=== PATIENT | male | born 1950 | race Caucasian/White ===

== ENCOUNTER → 2017-12-07 | Outpatient (CLI) | payer BC ==
[~2017-12-07] MED LIST: AMLODIPINE PO; HYDR-5688 PO; LISI-725 PO; OPTIRAY 320 IV PRN
--- NOTE | 2017-12-07 17:05 | DIAGNOSTIC IMAGING REPORT ---
CERVICAL SPINE WITH HISTORY: 67 years-old Male SPINAL STENOSIS chronic neck pain with history of prior spinal fusion. Upper extremity numbness, right greater than left. History of prostate cancer. COMPARISON: Cervical spine radiographs 11/30/2017, bone scan 03/21/2013. TECHNIQUE: Multiple axial CT images of the cervical spine were obtained following the intravenous administration of 93 mL Optiray 320 IV contrast. A dose lowering technique was used consistent with the principals of ALARA. FINDINGS: Anterior fusion with discectomy changes at C5-C6 and C6-C7. There is complete bony fusion of the vertebral bodies at these levels. No evidence of hardware fracture or loosening. Corticated bone fragment posterior to the T1 spinous process suggests remote fracture. Bones are mildly demineralized. There is no acute fracture or subluxation. Moderate marginal spurring about the T1-T2 articulation. Posterior disc osteophyte complex formations are seen at several levels, notably at the C3-C4 and C4-C5 levels. No high-grade central canal narrowing identified. There is neuroforaminal stenosis at several levels, better assessed by MRI. At C3-C4 there is at least moderate bilateral foraminal narrowing. At C4-C5 mild bilateral foraminal stenosis is noted. No abnormal enhancement identified. No prevertebral soft tissue swelling or pleural collections. Emphysematous changes about the lung apices. Multinodular goiter with calcifications about the right and left thyroid lobes. 1.2 cm nodule the posterior right thyroid. Moderate atherosclerosis of the bilateral carotid bulbs. IMPRESSION: 1. Anterior fusion and discectomy changes at C5-C6 and C6-C7. No evidence of hardware complication. 2. No acute fracture or subluxation. 3. Multilevel spondylitic spurring with posterior disc osteophyte complex formations as above. 4. Emphysema. The above report was generated using voice recognition software. It may contain grammatical, syntax or spelling errors. Electronically signed by: Carlitos Gandhi M.D. 12/07/2017 5:03 PM Dictated Date/Time: 12/07/2017 4:52 PM
== END | disposition home or self-care (01) ==
LOC: C.CTS 15:32
PROVIDERS: ATTEND Orthopaedic Surgery Orthopaedic Surgery of the Spine
DX: M48.02 Spinal stenosis, cervical region (principal)

== ENCOUNTER 2019-06-26 05:53 | Inpatient (IN) ==
--- NOTE | 2019-06-06 12:23 | PAT Medication Instructions ---
Medication Instructions Date of Service June 06, 2019 Home Medications amlodipine 10 mg tablet 10 mg PO QAM lisinopril 20 mg tablet 20 mg PO QAM DO NOT take the morning of surgery lisinopril 20 mg tablet 20 mg PO QAM Take morning of surgery With a small sip of water, OTHERWISE NOTHING TO EAT OR DRINK AFTER MIDNIGHT: amlodipine 10 mg tablet 10 mg PO QAM Other Notes If you have any questions please call us at [phone] or [phone] or [phone] or [phone]
--- NOTE | 2019-06-07 11:51 | Anesthesiology Consultation ---
Date of Service June 07, 2019 Assessment & Plan (1) Encounter for pre-operative examination: Chart Review Chart Review: Acceptable Risk for Surgery and Patient seen in Pre Admission Testing Teaching & Discussion Pre-Anesthesia Teaching/Discussion Notes: Instructed NPO after midnight before surgery,except medications with 15 cc of water. Medication instructions provided according to the PAT guidelines. History Surgery Operation Date: 06/26/19 09:50 Proposed Procedures p C3-C4, C4-C5 Anterior Cervical Discectomy and Fusion with Iliac Crest Bone Graft - Price Garcia DO Height/Weight Height: 6 ft Weight: 95.2 kg Allergies Allergy/AdvReac Type Severity Reaction Status Date / Time Sulfa (Sulfonamide Allergy Intermediate HIVES Verified 06/05/19 15:20 Antibiotics) Medications Home Medications Medication Instructions Recorded Confirmed Last Taken amlodipine 10 mg tablet 10 mg PO QAM 04/05/18 06/05/19 06/05/19 lisinopril 20 mg tablet 20 mg PO QAM 04/05/18 06/05/19 06/05/19 Past Medical History Medical History Cervical radiculitis (Chronic) Hypertension (Chronic) Lumbar stenosis (Chronic) Prostate cancer (Chronic) s/p radioactive seeds Exercise / Class Metabolic Activity II 4-5 Yardwork/Stairs/Walk up hill (one flight of stairs (no chest pain/no sob )) Past Surgical History Surgical History Cervical vertebral fusion (Resolved) C5-6 and C6-7 discectomies with C6 corpectomy and C5-7 PEEK cage placement Fusion of lumbar spine (Resolved) L3-L5 decompression/fusion: 07/06/16: Grade 1 view, MAC#4, ETT 8.0 History of colonoscopy History of hemorrhoidectomy Past Anesthesia History No Hx of Anesthesia Complications and No Family Hx of Anesthesia Complications History of PONV No Hx of PONV and No Hx of Motion Sickness STOP BANG Total 4 Social History Smoking Status: Current every day smoker tobacco type: pipe Smoking cigarettes per day: 4-6 X PER DAY Do You Dip or Chew Tobacco: No Hx Alcohol Use: Yes Alcohol type: beer alcohol intake frequency: holidays/special occasions only Hx Substance Use: No substance use type: does not use Review of Systems Patient denies chest pain, shortness of breath, dyspnea on exertion, reflux, cough, wheezing, palpitations. Physical Exam Vital Signs VITALS BP 169/98 (158/92 on manual recheck left) P 66 TEMP 97.8 SP02 99%RA RESP 16 PHYSICAL Midly decreased cervical extension Full TMJ range of motion. TMD 3 finger breaths Mallampati Score 2 Dentition: upper partial Lungs: clear throughout to auscultation Cardiac: regular rate and rhythm, no murmurs noted Spine: normal Carotid arteries: negative bruit Extremities: no edema Testing Laboratory Results 06/07/19 12:11 06/07/19 12:11 PT 10.6 Seconds (9.0-12.0) 06/07/19 12:11 INR 1.0 (0.9-1.1) 06/07/19 12:11 APTT 29.2 Seconds (21.0-31.0) 06/07/19 12:11 Blood Type O Positive 06/07/19 12:11 Antibody Screen NEGATIVE 06/07/19 12:11 Electrocardiogram Date: 06/07/19 NSR at 60bpm. [email or web address] TWA. Chest X-Ray Date: 06/07/19 Calcified plaque of the thoracic aortic arch. Cardiac mediastinal and hilar silhouettes are within normal limits and unchanged. Mild subsegmental atelectasis/scarring. Mild hyperinflation. No pneumothorax, pleural effusion or overt pulmonary edema. No focal airspace consolidation typical for pneumonia. Increased lucency of the lungs may reflect emphysema. Degenerative changes of the shoulders and spine. Healed remote fracture of the posterior right eighth rib. Fusion hardware of the cervical and lumbar spine partially imaged. No acute process.
[2019-06-07 12:33] LABS: Basophils # (auto) 0.01 K/uL (0-0.2); Basophils % (auto) 0.2 %; Eosinophils # (auto) 0.31 K/uL (0-0.5); Eosinophils % (auto) 5.2 %; Hematocrit (blood only) 46.3 % (42-52); Hemoglobin 15.7 g/dL (14.0-18.0); Immature Granulocytes # (auto) 0.01 K/uL (0.00-0.02); Immature Granulocytes % (auto) 0.2 %; Lymphocytes # (auto) 1.39 K/uL (1.2-3.4); Lymphocytes % (auto) 23.5 %; Mean Corpuscular Hemoglobin 30.2 pg (25-34); Mean Corpuscular Hgb Conc 33.9 g/dL (32-36); Mean Platelet Volume 10.5 fL (7.4-10.4); Monocytes # (auto) 0.42 K/uL (0.11-0.59); Monocytes % (auto) 7.1 %; Neutrophils # (auto) 3.77 K/uL (1.4-6.5); Neutrophils % (auto) 63.8 %; Platelet Count 183 K/uL (130-400); RDW Coefficient of Variation 13.3 % (11.5-14.5); RDW Standard Deviation 43.5 fL (36.4-46.3); White Blood Count 5.91 K/uL (4.8-10.8)
--- NOTE | 2019-06-07 12:41 | XRay Report ---
XR chest Pre-admission PA/Lat HISTORY: 68 years-old Male pat preoperative exam. No acute chest complaints COMPARISON: Chest radiographs 06/24/2016 TECHNIQUE: PA and lateral views of the chest FINDINGS: Calcified plaque of the thoracic aortic arch. Cardiac mediastinal and hilar silhouettes are within no rmal limits and unchanged. Mild subsegmental atelectasis/scarring of the inferior segment Sol. Mild hyperinflation. No pneumothorax, pleural effusion or overt pulmonary edema. No focal airspace consol idation typical for pneumonia. Increased lucency of the lungs may reflect emphysema. Degenerative marty nges of the shoulders and spine. Healed remote fracture of the posterior right eighth rib. Fusion len dware of the cervical and lumbar spine partially imaged. IMPRESSION: No acute process. The above report was generated using voice recognition software. It may contain grammatical, syntax o r spelling errors. Electronically signed by: Carlitos Gandhi M.D. 06/07/2019 12:39 PM
[2019-06-07 12:43] LABS: Partial Thromboplastin Ratio 1.1; Partial Thromboplastin Time 29.2 Seconds (21.0-31.0); Prothrombin Time 10.6 Seconds (9.0-12.0)
[2019-06-07 15:38] LABS: Calcium 9.7 mg/dl (8.5-10.1); Creatinine Clr Calc Pharmacy 78.4 ml/min; Est GFR (Non-African American) 71.6; Potassium 4.4 mmol/L (3.5-5.1)
--- NOTE | 2019-06-23 13:33 | History and Physical Report ---
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 His surgery is being planned for Wednesday an ACDF of the cervical spine with iliac crest bone graft C3-C5. PAST MEDICAL HISTORY: Positive for hypertension, lumbar stenosis, lumbar surgery, prostate CA. SOCIAL HISTORY: Nonsmoker, non-ETOH user. and lives with his . Retired. MEDICATIONS: Lisinopril, anti-inflammatories. ALLERGIES: SULFA. REVIEW OF SYSTEMS: Denies any fevers, sweats, chills. Ear, nose and throat negative. Denies shortness of breath, chest pain. Denies nausea, vomiting, bowel and bladder issues. He has upper extremity difficulties as described. PHYSICAL EXAMINATION: VITAL SIGNS: Blood pressure 130/80, temperature 36.8, respirations 18. HEENT: Pupils react to light and accommodation. Ear, nose and throat clear. CARDIAC: Normal S1, S2, no S3. LUNGS: Clear to auscultation. No rales, rhonchi or wheezing. ABDOMEN: Soft, nontender. MUSCULOSKELETAL: He has loss of biceps function, loss of supination function. He has a Spurling maneuver and Lhermitte sign. PLAN: Includes an ACDF with iliac crest bone graft C3-C5 cervical spine.
[2019-06-26] MEDS ORDERED: SODIUM CHLORIDE 0.9% 1,000 ML IV SCH (06:00)
[2019-06-26] MEDS ORDERED: LR 15ML/HR IV SCH (06:00)
[2019-06-26] MEDS ORDERED: CEFAZOLIN 2000MG 2,000 MG/15 ML SYR IV SCH (06:00)
[2019-06-26] MEDS ORDERED: GELATIN SPONGE SZ 100 ONE (06:58)
[2019-06-26] MEDS ORDERED: THROMBIN FOR SOLN 20000 UNIT KIT ONE (06:59)
[2019-06-26] MEDS ORDERED: BACITRACIN INJ 50,000 UNIT VIAL ONE (06:59)
[2019-06-26] MEDS ORDERED: BUPIVACAINE 0.5 % 5 MG/1 ML MPF 30ML VIAL ONE (06:59)
[2019-06-26] MEDS ORDERED: ROCURONIUM BROMIDE 10 MG/ML 5 ML VIAL ONE (07:18)
[2019-06-26] MEDS ORDERED: ONDANSETRON INJ 2 MG/ML 2 ML VIAL ONE (07:18)
[2019-06-26] MEDS ORDERED: MIDAZOLAM HCL 1 MG/ML 2ML VIAL ONE (07:18)
[2019-06-26] MEDS ORDERED: DEXAMETHASONE SOD INJ 4 MG/ML VIAL ONE (07:18)
[2019-06-26] MEDS ORDERED: fentaNYL citrate 100 MCG/2 ML VIAL ONE (07:18)
[2019-06-26] MEDS ORDERED: GLYCOPYRROLATE 0.2 MG/ML VIAL ONE (07:18)
[2019-06-26] MEDS ORDERED: ePHEDrine sulfate 50 MG/ML SYR ONE (07:18)
[2019-06-26] MEDS ORDERED: NEOSTIGMINE METHYLSULFATE 5 MG/5 ML SYR ONE (07:18)
[2019-06-26] MEDS ORDERED: LIDOCAINE HCL 2% 2 ML VIAL/AMP(20MG/ML) INFIL ONE (07:18)
[2019-06-26] MEDS ORDERED: PROPOFOL IV EMULSION 10 MG/ML 20 ML VIAL IV ONE (07:18)
[2019-06-26] MEDS ORDERED: LARYING-O-JET KIT (LTA) ONE (07:18)
--- NOTE | 2019-06-26 07:21 | History & Physical Bridge Note ---
Date of Service June 26, 2019 History & Physical Bridge Note I have examined the patient, reviewed the History & Physical and in the interval since the performance of the History & Physical I have noted the following changes of clinical significance: no changes noted
[2019-06-26] MEDS ORDERED: ONDANSETRON INJ 2 MG/ML 2 ML VIAL IV PRN ×2 (07:22→10:53)
[2019-06-26] MEDS ORDERED: fentaNYL citrate 100 MCG/2 ML VIAL IV PRN (07:22)
[2019-06-26] MEDS ORDERED: ePHEDrine sulfate 50 MG/ML AMP IV PRN (07:22)
[2019-06-26] MEDS ORDERED: ATROPINE SULFATE 0.1 MG/ML 10ML SYR IV PRN (07:22)
[2019-06-26] MEDS ORDERED: HYDROmorphone INJ 2 MG/ML SYR/VIAL ONE (08:20)
[2019-06-26] MEDS: EPINEPHrine INJ 1 MG/ML AMP ONE ×2 (09:14→09:18)
--- NOTE | 2019-06-26 09:20 | Fluoroscopy Report ---
FL spine 1V any level HISTORY: Cervical fusion. FLUOROSCOPY TIME: 5 seconds. FINDINGS: Intraoperative fluoroscopy was provided for the cervical spine. fluoroscopic spot images we re obtained. IMPRESSION: Fluoroscopy provided for a anterior cervical fusion. The above report was generated using voice recognition software. It may contain grammatical, syntax or spelling errors. Electronically signed by: Khurram Leggett M.D. 06/26/2019 9:18 AM
--- NOTE | 2019-06-26 09:35 | Post Operative Brief Note ---
PG Immediate Post Op with CF Date of Surgery June 26, 2019 Pre & Post Diagnosis Operation Date: 06/26/19 07:30 Pre-Op Diagnosis: Cervical Stenosis Post-Op Diagnosis: Cervical Stenosis I identified the patient and participated in the time-out.: Yes Procedure Operation Date: 06/26/19 07:30 Actual Procedures p C3-C4, C4-C5 Anterior Cervical Discectomy and Fusion with Iliac Crest Bone Graft(Not Applicable) - Price Garcia DO Surgeon Price Garcia DO Outbound Sales Consultant Jose minor Estimated Blood Loss 10 Findings Consistent with Post-Op Diagnosis Specimens Specimen Description: none per surgeon Drains [place] Drain (1/4 inch - placed by surgeon) Disposition Accompanied Patient To Recovery: Yes Overlapping Procedure I was immediately available: during the entire case.
--- NOTE | 2019-06-26 09:40 | Operative Report ---
PG Post Operative Report Pre & Post Diagnosis Operation Date: 06/26/19 07:30 Pre-Op Diagnosis: Cervical Stenosis Post-Op Diagnosis: Cervical Stenosis I identified the patient and participated in the time-out.: Yes Procedure Operation Date: 06/26/19 07:30 Actual Procedures p C3-C4, C4-C5 Anterior Cervical Discectomy and Fusion with Iliac Crest Bone Gra ft(Not Applicable) - Price Garcia DO Surgeon Price Garcia DO Preschool Substitute Teacher Jose minor Estimated Blood Loss 10 Findings Consistent with Post-Op Diagnosis Spinal cord compression Fluids Per anesthesia Specimens No specimens Description of Procedure Patient was taken to the operating room a general intubated anesthetic provided the patient. Placed in Supine on the David table. His iliac crest and cervical spine scrubbed first with Betadine prep and sterile drapes sterile. Formal timeout provided. We made a transverse skin incision over the C or vertebral body dissecting the soft tissue. It was a classic approach to his anterior aspect of the cervical spine area there were no issues with bleeders or nerve issues. We went to the anterior aspect the spine did a formal discectomy at C3-4 and C4- 5. Both areas we are back through the posterior longitudinal ligament the spinal cord was decompressed. Foraminotomies provided. Endplates curetted free of cartilage. We went to the iliac crest made a skin incision fashion incision harvested a structural autograft for the skin to be sites at C3-4 and C4-5. This was irrigated closed in layers and sterile dressings applied. We then went to the anterior aspect of the spine used the Fanplayr coalition device. These were placed into the discectomy sites. The fit was anatomic these were both enhanced with structural autograft from the iliac crest. Both the spacers were secured with screws. This area was also then irrigated closed in layers sterile dressings applied collar applied. Patient extubated to PACU stable without complication. Sponge and needle count correct at the close of the procedure. Estimated blood loss 10 cc no complications Sponge and needle count correct at the close Implants used were by the Fanplayr Bone graft used with structural autograft Thank you I attest to the content of the Intraoperative Record and any orders documented therein. Any exceptions are noted below.
--- NOTE | 2019-06-26 10:34 | Anesthesiology Progress Note ---
Date of Service June 26, 2019 Anesthesia Post Procedure Vital Signs Vital Signs: Temp Pulse Pulse Resp BP Pulse Ox 06/26/19 10:30 36.2 C L 63 15 152/85 H 95 06/26/19 10:20 36.2 C L 66 13 144/81 H 95 06/26/19 10:10 61 17 148/81 H 94 06/26/19 10:00 66 14 152/82 H 95 06/26/19 09:50 65 14 143/86 H 98 06/26/19 09:40 65 16 159/87 H 98 06/26/19 09:31 36.3 C L 66 14 140/67 98 06/26/19 06:23 36.4 C L 63 18 137/90 97 Transfer of Care Handoff Completed per policy Notes Mental Status: alert / awake / arousable Patient Amnestic to Procedure: Yes Nausea / Vomiting: adequately controlled Pain: adequately controlled Airway Patency, RR, SpO2: stable & adequate BP & HR: stable & adequate Hydration State: stable & adequate Anesthetic Complications: no major complications apparent
[2019-06-26] MEDS ORDERED: RACEPINEPHRINE 2.25% NEBU SOLN 0.5 ML VIAL INH PRN (10:53)
[2019-06-26] MEDS ORDERED: HYDROmorphone INJ 0.5 MG/0.5 ML SYR IV PRN (10:53)
[2019-06-26] MEDS ORDERED: ONDANSETRON 4 MG OD TAB PO PRN (10:53)
[2019-06-26] MEDS ORDERED: OXYCODONE HCL IR 5 MG TAB (IMMEDIATE RELEASE) PO PRN (10:53)
[2019-06-26] MEDS ORDERED: LORazepam 0.5 MG/1 ML VIAL IV PRN (10:53)
[2019-06-26] MEDS ORDERED: PROMETHAZINE HCL 12.5 MG in SODIUM CHLORIDE 0.9% 50 ML IV PRN (10:53)
[2019-06-26] MEDS ORDERED: DEXAMETHASONE SOD PHOSPHATE 8 MG in SYRINGE 0 ML IV PRN (10:53)
[2019-06-26] MEDS ORDERED: DO NOT ADMINISTER PNEUMOCOCCAL VACCINE PRN (10:53)
[2019-06-26] MEDS ORDERED: MAGNESIUM HYDROXIDE SUSP 30 ML UDC PO PRN (10:53)
[2019-06-26] MEDS ORDERED: ACETAMINOPHEN 1,000 MG/100 ML VIAL IV PRN (10:53)
[2019-06-26] MEDS ORDERED: NALOXONE HCL 0.4 MG/1 ML VIAL/CARP IV PRN (10:53)
[2019-06-26] MEDS ORDERED: FAMOTIDINE 20 MG TAB PO PRN (10:53)
[2019-06-26] MEDS ORDERED: ALUMINUM/MAGNESIUM SUSP 30 ML UDC PO PRN (10:53)
[2019-06-26] MEDS ORDERED: DO NOT ADMINISTER FLU VACCINE PRN (10:53)
[2019-06-26] MEDS ORDERED: SOD PHOSPHATE/SOD BIPHOSPHATE ENEMA 132 ML BTL PR PRN (10:53)
[2019-06-26] MEDS ORDERED: KETOROLAC TROMETHAMINE 15 MG/ML VIAL IV SCH (11:15)
[2019-06-26] MEDS: LACTATED RINGER'S 1,000 ML IV SCH (11:58)
[2019-06-26] MEDS ORDERED: KETOROLAC 30 MG/ML VIAL IV SCH (12:00)
[2019-06-26] MEDS: CEFAZOLIN 2000MG 2,000 MG/15 ML SYR IV SCH ×2 (17:09→23:26)
[2019-06-26] MEDS ORDERED: DOCUSATE SODIUM/SENNA 50/8.6MG TAB PO SCH (21:00)
[2019-06-27] MEDS: LACTATED RINGER'S 1,000 ML IV SCH (05:45)
--- NOTE | 2019-06-27 08:23 | Anesthesiology Progress Note ---
Date of Service June 27, 2019 Anesthesia Post Procedure Vital Signs Vital Signs: Temp Pulse Pulse Resp BP BP Pulse Ox 06/27/19 08:14 36.6 C 74 14 147/87 H 156/82 H 94 06/27/19 07:30 06/27/19 07:25 74 14 94 06/27/19 07:14 36.6 C 77 18 156/82 H 93 06/27/19 05:42 36.4 C L 71 18 136/81 06/27/19 03:40 36.6 C 67 18 147/84 H 95 06/27/19 03:25 66 18 96 06/27/19 01:49 36.6 C 74 16 139/77 06/27/19 00:00 80 16 95 06/26/19 23:50 36.6 C 83 18 135/81 94 06/26/19 21:54 36.5 C 81 15 156/85 H 95 06/26/19 19:51 36.7 C 87 16 138/83 95 06/26/19 19:44 88 16 96 06/26/19 17:53 36.5 C 88 16 147/87 H 95 06/26/19 15:34 36.4 C L 89 18 165/79 H 96 06/26/19 15:12 78 18 96 06/26/19 13:50 36.4 C L 87 16 150/84 H 95 06/26/19 12:50 36.4 C L 78 16 150/87 H 96 06/26/19 11:50 67 14 152/91 H 96 06/26/19 11:20 36.6 C 66 16 147/84 H 96 06/26/19 11:13 69 16 96 06/26/19 10:50 36.5 C 70 16 139/85 95 06/26/19 10:40 36.2 C L 65 15 150/86 H 97 06/26/19 10:30 36.2 C L 63 15 152/85 H 95 06/26/19 10:20 36.2 C L 66 13 144/81 H 95 06/26/19 10:10 61 17 148/81 H 94 06/26/19 10:00 66 14 152/82 H 95 06/26/19 09:50 65 14 143/86 H 98 06/26/19 09:40 65 16 159/87 H 98 06/26/19 09:31 36.3 C L 66 14 140/67 98 Pulse Ox 06/27/19 08:14 06/27/19 07:30 92 06/27/19 07:25 06/27/19 07:14 06/27/19 05:42 06/27/19 03:40 06/27/19 03:25 06/27/19 01:49 06/27/19 00:00 06/26/19 23:50 06/26/19 21:54 06/26/19 19:51 06/26/19 19:44 06/26/19 17:53 06/26/19 15:34 06/26/19 15:12 06/26/19 13:50 06/26/19 12:50 06/26/19 11:50 06/26/19 11:20 06/26/19 11:13 06/26/19 10:50 06/26/19 10:40 06/26/19 10:30 06/26/19 10:20 06/26/19 10:10 06/26/19 10:00 06/26/19 09:50 06/26/19 09:40 06/26/19 09:31 Pain Intensity Anterior Neck: Pain Intensity: 2 Notes Mental Status: alert / awake / arousable and participated in evaluation Patient Amnestic to Procedure: Yes Nausea / Vomiting: adequately controlled Pain: adequately controlled Airway Patency, RR, SpO2: stable & adequate BP & HR: stable & adequate Hydration State: stable & adequate Anesthetic Complications: no major complications apparent and Pt Satisfied with anesthetic care
--- NOTE | 2019-06-27 08:47 | Discharge Summary ---
HISTORY OF PRESENT ILLNESS: Mr. Peres is now about 20 hours post surgery, he has done well. He had an uneventful surgery, 2-level cervical spine surgery from an anterior approach for cord compression. Out of bed and ambulatory, taking p.o. Slight improvement seen thus far and has neurological deficit. PHYSICAL EXAMINATION: VITAL SIGNS: Stable. ASSESSMENT: Uneventful postop course about 20 hours postop. PLAN: We will discharge him home today. He has instruction and precautions in the office and here at the hospital. He will take [id number] medication. He does not want prescription strength. We will change his dressing. He already has a followup appointment.
[2019-06-27] MEDS ORDERED: AMLODIPINE BESYLATE 5 MG TAB PO SCH (09:00)
[2019-06-27] MEDS ORDERED: lisinopriL 20 MG TAB PO SCH (09:00)
[2019-06-27] MEDS ORDERED: POLYETHYLENE (MIRALAX) 17 GM PACK PO SCH (09:30)
[2019-06-28] MEDS ORDERED: bisacodyL 10 MG SUPP PR PRN (09:30)
== END 2019-06-27 11:47 | disposition home or self-care (01) | DRG 473 ==
LOC: ASU 05:53 → 3E 05:53 → OBSVTOIN 09:37